=== PATIENT | female | born 1960 | race Caucasian/White ===

== ENCOUNTER → 2020-03-30 16:27 | Outpatient (BNVA) | payer BC, SELFPAY | PROVIDERS: Family Provider Physician Assistant Medical; Visit Provider Nurse Practitioner Family | DX: R50.9 Fever, unspecified (principal); Z20.828 Contact with and (suspected) exposure to other viral communicable diseases; J98.8 Other specified respiratory disorders; B97.89 Other viral agents as the cause of diseases classified elsewhere | CPT/HCPCS: 71046; 87400; 87635 ==

== ENCOUNTER 2023-05-31 09:43 | Emergency (ER) | payer OTHER, MEDICAID, SELFPAY ==
[2023-05-31 09:46] VITALS: BP 99/67; PULSE 82; RESP 16; TEMP 36.7; O2SAT 96; BMI 24.9
--- NOTE | 2023-05-31 10:43 | ED_ITS ---
HPI - Nausea/Vomiting/Diarrhea 2 General: Chief complaint: Nausea/Vomiting/Diarrhea Stated complaint: Diarrhea Time Seen by Provider: 05/31/23 10:18 Source: patient Mode of arrival: ambulatory Limitations: no limitations History of Present Illness: 63-year-old female states that she has b een having watery diarrhea over the last week. She had seen her PCP and was placed on azithromycin along with Lomotil states she is continue to have diarrhea anytime she eats. She denies any vomiting she denies any pain she had no fevers denies any blood in her stool. Associated nausea: No Associated symtoms: Denies chest pain, dysuria, headache(s) or nausea Review of Systems 2 Const: Denies: fever(s), chills, body aches or change in appetite ENMT: Denies: throat pain or dental pain Card: Denies: chest pain Resp: Denies: dyspnea GI: Reports: diarrhea; Denies: abdominal pain, nausea or vomiting : Denies: dysuria Musc: Denies: neck pain or back pain Skin/Breast: Denies: rash Neuro: Denies: headache(s) PFSH ED 2 PFSH: Medical History Diarrhea Essential (primary) hypertension Viral respiratory infection Close exposure to COVID-19 virus Physical Exam 2 Const: COMMON NORMALS: no acute distress, patient oriented x3 and healthy appearing HENMT: COMMON NORMALS: normocephalic and atraumatic HEAD & SCALP: n ormocephalic and atraumatic Eye: COMMON NORMALS: conjunctivae normal CONJUNCTIVA: Yes conjunctivae normal Neck/C-Spine: COMMON NORMALS: full ROM and supple Chest: COMMONS NORMALS: normal inspection of the chest Resp: COMMON NORMALS: normal respiratory effort Cardio: COMMON NORMALS: regular rate and regular rhythm RATE: regular rate RHYTHM: regular rhythm GI: COMMON NORMALS: Normal to inspection, nondistended, normoactive bowel sounds present, Soft to palpation, non-tender and no masses PALPATION: Yes Soft to palpation Extremity: COMMON NORMALS: normal to inspection and full ROM Neuro: COMMON NORMALS: patient oriented x3, moves all extremities and no focal motor deficits Psych: COMMON NORMALS: mental status grossly normal, Normal thought process present and cooperative THOUGHT PROCESS: Normal thought process present Skin: COMMON NORMALS: no rashes or lesions noted and no wounds GENERAL SKIN EXAM: no rashes or lesions noted Course 2 Vital Signs: Vital signs: Vital Signs Temperature 98.0 F 05/31/23 09:46 Pulse Rate 82 05/31/23 09:46 Respiratory Rate 16 05/31/23 09:46 Blood Pressure 99/67 05/31/23 09:46 Pulse Oximetry 96 05/31/23 09:46 Oxygen Delivery Me thod Room Air 05/31/23 09:46 MDM - Nausea/Vomiting/Diarrhea Medical Decision Making Patient presents with diarrhea it has been going on for a week we will get stool sample and follow. Will start her on Flagyl she is to follow-up with her PCP and return if worsening she understands agrees to plan. Medical Records I reviewed the patient's medical records. Lab Data I reviewed the patient's lab results. 05/31/23 10:22 05/31/23 10:22 Laboratory Results WBC 7.08 10^3/uL (3.29-11.43) 05/31/23 10:22 RBC 4.21 10^6/uL (3.85-5.65) 05/31/23 10:22 Hgb 12.20 g/dL (11.27-16.99) 05/31/23 10:22 Hct 37.9 % (36-47) 05/31/23 10:22 MCV 90.0 fl (85-98) 05/31/23 10:22 MCH 29.0 pg (27-33) 05/31/23 10:22 MCHC 32.2 g/dL (30-55) 05/31/23 10:22 RDW 12.9 % (12.1-15.1) 05/31/23 10:22 Plt Count 227 10^3/cmm (157-399) 05/31/23 10:22 MPV 11.3 fL (7.4-10.4) H 05/31/23 10:22 Neut % (Auto) 56.1 % 05/31/23 10:22 Lymph % (Auto) 29.9 % 05/31/23 10:22 Giles % (Auto) 11.2 % 05/31/23 10:22 Eos % (Auto) 2.0 % 05/31/23 10:22 Baso % (Auto) 0.7 % 05/31/23 10:22 Neut # (Auto) 3.97 10^3/uL (1.8-7.7) 05/31/23 10:22 Lymph # (Auto) 2.1 10^3/uL (0.8-4.8) 05/31/23 10:22 Giles # (Auto) 0.8 10^3/uL (0.2-0.9) 05/31/23 10:22 Eos # (Auto) 0.1 10^3/uL (0.0-0.8) 05/31/23 10:22 Baso # (Auto) 0.1 10^3/uL (0.0-0.1) 05/31/23 10:22 Nucleated RBC % (auto) 0 % 05/31/23 10:22 Nucleated RBCs # 0.0 /100WBC 05/31/23 10:22 Sodium 139 mmol/L (136-145) 05/31/23 10:22 Potassium 4.4 mmol/L (3.5-5.1) 05/31/23 10:22 Chloride 103 mmol/L (98-107) 05/31/23 10:22 Carbon Dioxide 24 mmol/L (22-29) 05/31/23 10:22 Anion Gap 16.4 (5-19) 05/31/23 10:22 BUN 13 mg/dL (8-23) 05/31/23 10:22 Creatinine 1.2 mg/dL (0.5-0.9) H 05/31/23 10:22 GFR Calculation 45.2 mL/min (90-130) L 05/31/23 10:22 Glucose 104 mg/dL (65-115) 05/31/23 10:22 Calculated Osmolality 288 mOsm/kg (285-295) 05/31/23 10:22 Calcium 9.3 mg/dL (8.5-10.5) 05/31/23 10:22 Total Bilirubin 0.3 mg/dL (0.15-1.2) 05/31/23 10:22 AST 16 U/L (0-32) 05/31/23 10:22 ALT 11 U/L (0-33) 05/31/23 10:22 Alkaline Phosphatase 83 U/L (35-105) 05/31/23 10:22 Total Protein 7.3 g/dL (6.6-8.7) 05/31/23 10:22 Albumin 4.2 g/dL (3.5-5.2) 05/31/23 10:22 Globulin 3.1 g/dL (1.3-4.6) 05/31/23 10:22 No radiology studies performed this visit Discharge Plan Discharge Patient Disposition: Home Clinical Impression: Diarrhea Qualifiers: Diarrhea type: unspecified type Qualified Code(s): R19.7 - Diarrhea, unspecified Condition: Stable Prescriptions: New metronidazole 500 mg tablet 500 mg PO Q8H 7 Days Qty: 21 0RF No Action lisinopril 10 mg tablet PO nitrofurantoin monohyd/m-cryst [Macrobid] 100 mg capsule 100 mg PO Q12H 7 Days Qty: 14 0RF Rx Instructions: must administer with a meal/food diphenoxylate-atropine [Lomotil] 2.5-0.025 mg tablet See Rx Instructions PO DAILY Qty: 14 0RF Rx Instructions: 2 tabs 4 times daily until control achieved, usually within 48 hr azithromycin [Zithromax Z-Roberto] 250 mg tablet See Rx Instructions PO .COMPLEX Qty: 6 0RF Rx Instructions: For 250 mg dose pack: take 500 mg today (day 1), then 250 mg for 4 days (days 2-5) PO Discharge Orders: Discharge ED (Routine); Ordered 05/31/23 Ordered By: Veto Pimentel Referrals: LORA Woodard, [facility] [facility] [Primary Care Provider] - 1-3 days Discharge Diet: Advance as tolerated Discharge Activity: Resume usual activity Patient Instructions: Diarrhea - Adult Coding Level of Care Code ED [employer] [facility] Veterinarian for Duncan Newsome
[2023-05-31 10:51] LABS: Basophils # 0.1 10^3/uL (0.0-0.1); Basophils % 0.7 %; Eosinophils # 0.1 10^3/uL (0.0-0.8); Hematocrit 37.9 % (36-47); Lymphocytes # 2.1 10^3/uL (0.8-4.8); Lymphocytes % 29.9 %; Mean Corpuscular HGB Conc 32.2 g/dL (30-55); Mean Platelet Volume 11.3 fL (7.4-10.4); Monocytes # 0.8 10^3/uL (0.2-0.9); Monocytes % 11.2 %; Neutrophils # 3.97 10^3/uL (1.8-7.7); Neutrophils % 56.1 %; Nucleated Red Blood Cells % 0 %; Platelet Count 227 10^3/cmm (157-399); Red Blood Count 4.21 10^6/uL (3.85-5.65); Red Cell Distribution Width 12.9 % (12.1-15.1); White Blood Count 7.08 10^3/uL (3.29-11.43)
[2023-05-31] MEDS: sodium chloride 0.9% 1,000 ML 999 ML IV (11:05)
[2023-05-31] MEDS: diphenoxylate/atropine Tablet 2 TAB PO (11:05)
[2023-05-31 11:16] LABS: Alanine Aminotransferase 11 U/L (0-33); Albumin Level 4.2 g/dL (3.5-5.2); Alkaline Phosphatase 83 U/L (35-105); Anion Gap 16.4 (5-19); Aspartate Amino Transferase 16 U/L (0-32); Blood Urea Nitrogen 13 mg/dL (8-23); Calcium 9.3 mg/dL (8.5-10.5); Carbon Dioxide 24 mmol/L (22-29); Chloride 103 mmol/L (98-107); Globulin 3.1 g/dL (1.3-4.6); Glomerular Filtration Rate 45.2 mL/min (90-130); Glucose 104 mg/dL (65-115); Osmolality Calculated 288 mOsm/kg (285-295); Potassium 4.4 mmol/L (3.5-5.1); Sodium 139 mmol/L (136-145); Total Bilirubin 0.3 mg/dL (0.15-1.2); Total Protein 7.3 g/dL (6.6-8.7)
--- NOTE | 2023-05-31 12:40 | PC.NURSE ---
Stool sample collected and submitted to the lab.
[2023-06-03 14:46] LABS: Clostridium Difficile PCR NOT DETECTED (NOT DETECTED)
== END 2023-05-31 12:42 | disposition home or self-care (01) ==
PROVIDERS: Emergency Provider Emergency Medicine; PCP Nurse Practitioner Family
DX: R19.7 Diarrhea, unspecified (principal); I10 Essential (primary) hypertension
CPT/HCPCS: 36415; 80053; 82274; 83630; 85025; 87045; 87177; 87209; 87427; 87449; 87493; 96360; 99284; J7030

== ENCOUNTER → 2024-09-27 13:34 | Outpatient (BNVA) | payer MEDICARE, OTHER, SELFPAY | PROVIDERS: PCP Nurse Practitioner Family; Visit Provider Podiatrist Foot & Ankle Surgery | DX: M72.2 Plantar fascial fibromatosis (principal); M79.671 Pain in right foot; M79.672 Pain in left foot | CPT/HCPCS: 73630; 99203 ==